=== PATIENT | female | born 1990 | race Caucasian/White ===

== ENCOUNTER 2019-01-09 10:03 | Emergency (ER) | payer OTHER, SELFPAY ==
[~2019-01-09] VITALS: Ht 165.1 cm; Wt 75.0 kg
[2019-01-09 10:45] LABS: BASO % 0.3 % (0.0-1.0); EOS # 0.3 10^3/uL (0.0-0.50); EOS % 3.6 % (0.0-3.0); HEMATOCRIT 41.4 % (36.0-47.0); HEMOGLOBIN 13.9 g/dl (12.0-15.5); LYMPH # 2.6 10^3/uL (1.5-6.5); LYMPH % 35.4 % (24.0-44.0); MEAN CORPUSCULAR HEMOGLOBIN 32.4 pg (27.0-33.0); MEAN CORPUSCULAR HGB CONC 33.6 g/dl (32.0-36.5); MEAN CORPUSCULAR VOLUME 96.5 fl (80.0-96.0); MONO # 0.7 10^3/uL (0.0-0.8); MONO % 9.1 % (0.0-5.0); NEUTROPHILS # 3.7 10^3/uL (1.8-7.7); NEUTROPHILS % 51.1 % (36.0-66.0); PLATELET COUNT, AUTOMATED 258 10^3/uL (150-450); RED BLOOD COUNT 4.29 10^6/uL (4.00-5.40); WHITE BLOOD COUNT 7.3 10^3/uL (4.0-10.0)
[2019-01-09] MEDS ORDERED: PYRI1TAB5 PO (12:56)
[2019-01-09 13:02] VITALS: BP 116/69
[2019-01-09 13:49] LABS: CHLAMYDIA DNA AMPLIFICATION NEGATIVE (NEGATIVE); GC DNA AMPLIFICATION NEGATIVE (NEGATIVE)
[2019-01-11] MEDS ORDERED: KEFL500C17 PO (08:17)
== END 2019-01-09 13:05 | disposition home or self-care (01) ==
LOC: M ED 10:03
DX: R30.0 Dysuria (principal); F17.210 Nicotine dependence, cigarettes, uncomplicated

== ENCOUNTER → 2019-12-01 | Outpatient (REF) | payer MEDICAID ==
[~2019-12-01] MED LIST: KEFL500C17 PO; PYRI1TAB5 PO
[2019-12-01 13:25] LABS: HEMATOCRIT 38.2 % (36.0-47.0); HEMOGLOBIN 12.4 g/dl (12.0-15.5); MEAN CORPUSCULAR HEMOGLOBIN 31.6 pg (27.0-33.0); MEAN CORPUSCULAR HGB CONC 32.5 g/dl (32.0-36.5); MEAN CORPUSCULAR VOLUME 97.2 fl (80.0-96.0); PLATELET COUNT, AUTOMATED 270 10^3/uL (150-450); RED BLOOD COUNT 3.93 10^6/uL (4.00-5.40); WHITE BLOOD COUNT 8.6 10^3/uL (4.0-10.0)
[2019-12-01 15:50] LABS: HCG, SERUM QUANTITATIVE 10837 MIU/ML
[2019-12-02 11:38] LABS: RUBELLA IgG QUALITATIVE IMMUNE (IMMUNE)
[2019-12-02 12:07] LABS: HEPATITIS C VIRUS ABY INDEX < 0.0 INDEX (<0.8)
[2019-12-02 12:08] LABS: HIV 1&2 SCREEN CENTAUR NEGATIVE (NEGATIVE)
== END ==
LOC: M LAB REF 12:19
PROVIDERS: ATTEND Obstetrics & Gynecology
DX: Z32.01 Encounter for pregnancy test, result positive (principal)

== ENCOUNTER → 2019-12-08 | Outpatient (CLI) | payer MEDICAID ==
--- NOTE | 2019-12-08 11:33 | REP ---
OB ULTRASOUND: Real-time sonographic evaluation of the gravid uterus performed. There is a single living intrauterine gestation with an estimated gestational age of 20 weeks 0 days, EDC 04/26/2020. Today's measurements indicate appropriate growth. Biometry and Growth: BPD 49 mm = 20 weeks 5 days, 69th percentile HC 72 mm = 19 weeks 6 days, 44th percentile AC 154 mm = 20 weeks 4 days, 63rd percentile FL 33 mm = 20 weeks 2 days, 56th percentile HC/AC ratio 1.12 within normal range. Estimated weight 351 grams, 61st percentile. SEEN/GROSSLY UNREMARKABLE Lateral ventricles Yes Posterior fossa Yes Upper lip Yes Four-chamber heart Yes LVOT Yes RVOT Yes Stomach Yes Cord insertion Yes Three vessel cord Yes Kidneys Yes Bladder Yes Spine No Cervical length: heart rate: 144 beats per minute. position: Vertex. Placenta: Posterior and to the right, grade 0 with no previa or abruption. Amniotic fluid: Within normal limits. Cervix is closed and measures 5.2 cm in length. Electronically Signed by Mohsen Link MD 12/08/2019 12:01 P
== END ==
LOC: M RAD 10:32
PROVIDERS: ATTEND Obstetrics & Gynecology
DX: Z36.9 Encounter for antenatal screening, unspecified (principal); Z3A.20 20 weeks gestation of pregnancy

== ENCOUNTER → 2020-01-04 | Outpatient (CLI) | payer MEDICAID ==
--- NOTE | 2020-01-04 15:39 | REP ---
OB ULTRASOUND: Real-time sonographic evaluation of the gravid uterus is performed. There is a single living intrauterine gestation. The estimated gestational age is 23 weeks 6 days, EDC 04/26/2020. Today's measurements indicate appropriate growth. BPD 60 mm = 24 weeks 3 days, 60th percentile HC 223 mm = 24 weeks 2 days, 59th percentile AC 198 mm = 24 weeks 3 days, 62nd percentile Femur length 42 mm = 23 weeks 6 days, 47th percentile HC/AC ratio 1.12 within normal range of 1.03-1.22. Estimated weight 672 grams, 53rd percentile. Cervix is closed and measures 4.4 cm in length. heart rate 140 beats per minute. SEEN/GROSSLY UNREMARKABLE Lateral ventricles Yes Posterior fossa Yes Upper lip Yes Four-chamber heart Yes LVOT Yes RVOT No Stomach Yes Cord insertion Yes Three vessel cord Yes Kidneys Yes Bladder Yes Spine Yes position: Breech. Placenta: Posterior and to the right, grade 1 with no previa or abruption. Amniotic fluid: Within normal limits. Electronically Signed by Mohsen Link MD 01/04/2020 07:49 P
== END ==
LOC: M RAD 13:37
PROVIDERS: ATTEND Obstetrics & Gynecology
DX: O32.1XX0 Maternal care for breech presentation, not applicable or unspecified (principal); Z3A.24 24 weeks gestation of pregnancy

== ENCOUNTER → 2020-02-01 | Outpatient (CLI) | payer OTHER ==
[2020-02-01 12:03] LABS: HEMATOCRIT 35.9 % (36.0-47.0); HEMOGLOBIN 11.6 g/dl (12.0-15.5); MEAN CORPUSCULAR HEMOGLOBIN 31.1 pg (27.0-33.0); MEAN CORPUSCULAR HGB CONC 32.3 g/dl (32.0-36.5); MEAN CORPUSCULAR VOLUME 96.2 fl (80.0-96.0); PLATELET COUNT, AUTOMATED 232 10^3/uL (150-450); RED BLOOD COUNT 3.73 10^6/uL (4.00-5.40); WHITE BLOOD COUNT 11.5 10^3/uL (4.0-10.0)
== END ==
LOC: M LAB 10:28
PROVIDERS: ATTEND Obstetrics & Gynecology
DX: Z34.92 Encounter for supervision of normal pregnancy, unspecified, second trimester (principal)

== ENCOUNTER → 2020-02-10 | Outpatient (REF) | payer OTHER, MEDICAID | LOC: M LAB REF 16:37 | PROVIDERS: ATTEND Obstetrics & Gynecology | DX: N39.0 Urinary tract infection, site not specified (principal) ==

== ENCOUNTER → 2020-03-24 | Outpatient (REF) | payer OTHER, MEDICAID | LOC: M LAB REF 17:34 | PROVIDERS: ATTEND Obstetrics & Gynecology | DX: Z34.83 Encounter for supervision of other normal pregnancy, third trimester (principal) ==

== ENCOUNTER → 2020-04-09 | Outpatient (CLI) | payer OTHER, MEDICAID | LOC: M LABSMTC 11:29 | PROVIDERS: ATTEND Anesthesiology | DX: Z01.818 Encounter for other preprocedural examination (principal); Z11.59 Encounter for screening for other viral diseases | CPT/HCPCS: C9803; U0003 ==

== ENCOUNTER 2020-04-14 05:18 | Inpatient (IN) | payer OTHER ==
[~2020-04-14] VITALS: Ht 167.6 cm; Wt 90.0 kg
[2020-04-14] MEDS ORDERED: LR 1,000 ML IV SCH ×2 (05:26→09:00)
[2020-04-14] MEDS ORDERED: LACTATED RINGER'S 1000 ML IV STA (05:26)
[2020-04-14] MEDS ORDERED: BICITRA 30ML SOLN UDC PO ONE (05:30)
[2020-04-14] MEDS ORDERED: ceFAZolin SOD 2 GM in IV 1 EA IV ONE (05:30)
[2020-04-14 05:41] VITALS: BP 124/77
[2020-04-14 06:01] LABS: HEMOGLOBIN 11.3 g/dl (12.0-15.5); MEAN CORPUSCULAR HEMOGLOBIN 29.1 pg (27.0-33.0); MEAN CORPUSCULAR HGB CONC 32.3 g/dl (32.0-36.5); MEAN CORPUSCULAR VOLUME 90.2 fl (80.0-96.0); PLATELET COUNT, AUTOMATED 234 10^3/uL (150-450); RED BLOOD COUNT 3.88 10^6/uL (4.00-5.40)
[2020-04-14] MEDS ORDERED: NALBUPHINE HCL 10 MG/ML AMP (J2300) IV PRN ×2 (07:42→09:00)
[2020-04-14] MEDS ORDERED: METOCLOPRAMIDE INJ 10MG/2ML VIAL (J2765 PER 1) IV PRN (07:42)
[2020-04-14] MEDS ORDERED: NALOXONE INJ 0.4MG/1ML VIAL (J2310 PER 1MG) IV PRN ×2 (07:42)
[2020-04-14] MEDS ORDERED: ONDANSETRON 4MG/2ML VIAL IV PRN ×2 (07:42→09:00)
[2020-04-14] MEDS ORDERED: diphenhydrAMINE 50MG/ML VIAL (J1200) IV PRN (07:42)
[2020-04-14] MEDS ORDERED: OXYTOCIN INJ 10 UNITS/ML VIAL (J2590) As Ordered ONE (07:47)
[2020-04-14] MEDS ORDERED: MORPHINE PRES-FREE INJ 10 MG/10 ML VIAL (J2274) As Ordered ONE (07:47)
[2020-04-14 08:09] LABS: CORD GAS ABE V -1.2; CORD GAS HCO3 V 24.1 MEQ/L; CORD GAS O2 SAT V 85.6 %; CORD GAS PCO2 V 42.3 mmHg; CORD GAS PH V 7.373 UNITS; CORD GAS PO2 V 40.3 mmHg; CORD GAS SBC V 23.2 MEQ/L; CORD GAS TCO2 V 25.4 MEQ/L
[2020-04-14 08:12] LABS: CORD GAS O2 SAT A 56.9 %; CORD GAS PCO2 A 52.4 mmHg; CORD GAS PH A 7.313 UNITS; CORD GAS PO2 A 24.7 mmHg; CORD GAS SBC A 22.6 MEQ/L; CORD GAS TCO2 A 27.6 MEQ/L
[2020-04-14] MEDS ORDERED: ONDANSETRON 4MG/2ML VIAL As Ordered ONE (08:19)
[2020-04-14] MEDS ORDERED: OXYTOCIN DRIP 30 UNITS in IV 1 EA IV SCH (08:50)
[2020-04-14] MEDS ORDERED: MEPERIDINE INJ 25 MG/ML VIAL (J2175) IV PRN (09:00)
[2020-04-14] MEDS ORDERED: DOCUSATE SODIUM 100 MG CAP PO SCH (09:00)
[2020-04-14] MEDS ORDERED: KETOROLAC 30 MG/ML 1ML VIAL IV PRN (09:00)
[2020-04-14] MEDS ORDERED: RHOGAM 300 MCG (1500 IU) INJ (J2790) IM SCH (09:00)
[2020-04-14] MEDS ORDERED: MOM 30ML SUSPENSION UDC PO PRN (09:00)
[2020-04-14] MEDS ORDERED: PERCOCET 5MG/325MG TAB PO PRN ×2 (09:00)
[2020-04-14] MEDS ORDERED: PRENATAL VITAMINS CHEWABLE TABLET PO SCH (09:00)
[2020-04-14] MEDS ORDERED: MEASLES,MUMPS,RUBELLA VACCINE INJ (MMR-II) (90707) SC SCH (09:00)
[2020-04-14] MEDS ORDERED: fentaNYL 100 MCG/2 ML INJECTION (J3010) IV PRN (09:00)
[2020-04-14] MEDS ORDERED: KETOROLAC 30 MG/ML 1ML VIAL As Ordered ONE (09:15)
[2020-04-14] MEDS ORDERED: OXYTOCIN 30 UNITS IN 0.9% NaCl 500ML IV BAG (J2590) As Ordered ONE (09:16)
[2020-04-14 10:30] VITALS: BP 108/64
[2020-04-14 11:00] VITALS: BP 109/63
[2020-04-14] MEDS ORDERED: KETOROLAC 30 MG/ML 1ML VIAL IV SCH (15:00)
[2020-04-15] MEDS ORDERED: IBUPROFEN 800 MG TAB PO SCH (11:00)
[2020-04-16] MEDS ORDERED: DOCUSATE SODIUM 100 MG CAP ONE (02:26)
[2020-04-16] MEDS ORDERED: IBUPROFEN 800 MG TAB ONE ×2 (02:26)
[2020-04-16] MEDS ORDERED: PRENATAL VITAMINS CHEWABLE TABLET ONE (02:26)
[2020-04-16] MEDS ORDERED: BOOSTRIX/ADACEL VACCINE (DIPHTH/PERTUSS/ACELL/TETANUS) 0.5ML SYR ONE (02:26)
[2020-04-16] MEDS ORDERED: BOOSTRIX/ADACEL VACCINE (DIPHTH/PERTUSS/ACELL/TETANUS) 0.5ML SYR As Ordered ONE (08:49)
== END 2020-04-16 09:10 | disposition home or self-care (01) | DRG 540 ==
LOC: M LDI 05:18 → EEVIPCON 05:18 → M OBS 10:10
PROVIDERS: ADMIT Obstetrics & Gynecology; ATTEND Obstetrics & Gynecology
PROC: 0UB70ZZ Excision of Bilateral Fallopian Tubes, Open Approach (ICD-10-PCS; 2020-04-14)
PROC: 10D00Z1 Extraction of Products of Conception, Low, Open Approach (ICD-10-PCS; principal; 2020-04-14 07:30)
DX: O34.211 Maternal care for low transverse scar from previous cesarean delivery (principal); Z30.2 Encounter for sterilization; Z37.0 Single live birth; Z3A.39 39 weeks gestation of pregnancy

== ENCOUNTER 2020-07-09 12:48 | Emergency (ER) | payer OTHER ==
[~2020-07-09] VITALS: Ht 165.1 cm; Wt 79.4 kg
[2020-07-09 12:48] VITALS: BP 145/78
[2020-07-09] MEDS ORDERED: KEFL500C17 PO (13:26)
== END 2020-07-09 13:41 | disposition home or self-care (01) ==
LOC: M ED 12:48
DX: H02.842 Edema of right lower eyelid (principal); F17.200 Nicotine dependence, unspecified, uncomplicated